=== PATIENT | male | born 1960 | race Caucasian/White ===

== ENCOUNTER 2020-09-01 05:16 | Inpatient (IN) | payer OTHER ==
[2020-08-24 12:13] LABS: BASOPHILS % (AUTO) 0.3 % (0-1); EOSINOPHILS % (AUTO) 0.5 % (0-6); LYMPHOCYTES # (AUTO) 1.3 X10'3 (1.1-4.8); MEAN CORPUSCULAR HEMOGLOBIN 31.1 PG (27.0-31.0); MEAN CORPUSCULAR HGB CONC 33.7 g/dL (33.0-36.5); MEAN CORPUSCULAR VOLUME 92.4 FL (78-98); MONOCYTES # (AUTO) 0.5 X10'3 (0-0.9); MONOCYTES % (AUTO) 7.8 % (2-12); NEUTROPHILS # (AUTO) 4.8 X10'3 (1.8-7.7); NEUTROPHILS % (AUTO) 71.4 % (42-75); PRE OP HEMOGLOBIN 15.8 g/dL (14.0-17.9); PRE OP PLATELET COUNT 194 X10'3 (140-440); RED BLOOD COUNT 5.09 X10'6 (4.70-6.10); RED CELL DISTRIBUTION WIDTH 13.4 % (11.5-14.5)
[2020-08-24 12:28] LABS: PRE OP PROTIME 10.6 SECONDS (9.0-12.0)
[2020-08-24 12:30] LABS: ALBUMIN 4.1 G/DL (3.4-5.0); ALBUMIN/GLOBULIN RATIO 1.1 (1.1-1.5); ALKALINE PHOSPHATASE 78 IU/L (46-116); BLOOD UREA NITROGEN 20 MG/DL (7-18); BUN/CREATININE RATIO 21.1 (5.4-32.0); CALCIUM 9.3 MG/DL (8.5-10.1); CHLORIDE 102 MMOL/L (99-107); CREATININE 0.95 MG/DL (0.60-1.10); PRE OP ALT 48 U/L (30-65); PRE OP ANION GAP 7 (8-16); PRE OP AST 24 U/L (10-37); PRE OP BILIRUB, TOTAL 0.6 MG/DL (0.0-1.0); PRE OP GLUCOSE 97 MG/DL (70-104); PRE OP POTASSIUM 4.2 MMOL/L (3.4-5.1); PRE OP SODIUM 136 MMOL/L (135-145); TOTAL CARBON DIOXIDE 27.2 MMOL/L (24-32); eGFR 81 ML/MIN
[~2020-09-01] VITALS: Ht 188 cm; Wt 108.6 kg
[2020-09-01] VITALS (19 sets, daily range): BP systolic 92–124; BP diastolic 51–81
[~2020-09-01 05:16] MED LIST: ATOM80CA PO; ATOR20TA66 PO; ringers solution, lacted 1,000 ML IV SCH
[2020-09-01] MEDS ORDERED: vancomycin 1,500 MG in NS 300ml IV soln IV ONE (05:30)
[2020-09-01] MEDS ORDERED: famotidine 20mg tablet PO ONE (05:30)
[2020-09-01] MEDS ORDERED: ceFAZolin 2gm in dextrose, iso 50 ML IV ONE (05:30)
[2020-09-01] MEDS ORDERED: tetracaine 1% (10mg/ml) pres. free inj. ONE (07:15)
[2020-09-01] MEDS ORDERED: midazolam 2 mg/2 ml injection ONE (07:18)
[2020-09-01] MEDS ORDERED: fentaNYL/PF 50MCG/1 ML 2ML syringe ONE (07:18)
[2020-09-01] MEDS ORDERED: morphine /PF 1mg/ml 10ml inj. ONE (07:19)
[2020-09-01] MEDS ORDERED: ePHEDrine 50MG/ML INJ. ONE (08:10)
[2020-09-01] MEDS ORDERED: propofol inj 20 ML IV ONE ×7 (08:10→10:29)
[2020-09-01] MEDS ORDERED: morphine 4 MG/ML inj SYRINge IV PRN (08:15)
[2020-09-01] MEDS ORDERED: naloxone 2mg/2ml inj 2 MG in normal saline 500ml IV soln 500 ML IV PRN (08:15)
[2020-09-01] MEDS ORDERED: diphenhydrAMINE 50 mg/ml inj IV PRN (08:15)
[2020-09-01] MEDS ORDERED: ringers solution, lacted 1,000 ML IV SCH (08:15)
[2020-09-01] MEDS ORDERED: ondansetron/PF 4mg/2ml inj IV PRN ×3 (08:15→11:05)
[2020-09-01] MEDS ORDERED: meperidine/PF 25mg/ml syringe IV PRN (08:15)
[2020-09-01] MEDS ORDERED: acetaminophen 1,000mg/100ml IV 100 ML IV PRN (08:15)
[2020-09-01] MEDS ORDERED: HYDROmorphone/PF 0.2 MG/ML SYRINGE IV PRN ×2 (08:15)
[2020-09-01] MEDS ORDERED: proCHLORperazine 10 MG/2 ml inj IV PRN (08:15)
[2020-09-01] MEDS ORDERED: morphine 2 MG/ML inj. syringe IV PRN (08:15)
[2020-09-01] MEDS ORDERED: ROPIVACAINE IU ONE (08:45)
[2020-09-01] MEDS ORDERED: KETOROLAC TROMETH IU ONE (08:45)
[2020-09-01] MEDS ORDERED: [UNRECOGNIZED DRUG - OTHER] IU ONE (08:45)
--- NOTE | 2020-09-01 10:53 | NUR ---
Received from OR via [facility], accompanied by Anesthesiologist Nicolas and report given by Anesthesiolgist. Pt alert and responsive, mask to 10L and sats 100%. All other VS stable and WNL. 18G to left forearm LR at 100cc/hr. Mello catheter draining yellow urine to gravity. Pt lying flat with immobilizing hip pillow between legs. Left anterior hip with gauze and tegaderm dressing and hemovac to left lateral thigh. Good bilateral pedal pulses.
--- NOTE | 2020-09-01 11:00 | NUR ---
SCDs placed on patient. Sensation stops at waist line with spinal block, cannot move toes or feel sensation at hip or below.
[2020-09-01] MEDS ORDERED: bisacodyl 10mg suppository rectal RC PRN (11:05)
[2020-09-01] MEDS ORDERED: magnesium hydroxide 30ml (MOM) UD suspension PO PRN (11:05)
[2020-09-01] MEDS ORDERED: acetaminophen 325mg tablet PO PRN (11:05)
[2020-09-01] MEDS ORDERED: diphenhydrAMINE 25mg capsule PO PRN ×2 (11:05)
--- NOTE | 2020-09-01 12:03 | NUR ---
Report called to receiving nurse. Transferred via ortho bed. Belongings sent with patient, two bags and one red cane. was called and given update prior to transfer. Special Issues communicated to receiving nurse Jesica RN. Pt alert and oriented, BLL call light within reach, RN at bedside and chart given to nurse's station.
[2020-09-01] MEDS: potassium cl 20mEq in 1/2 NS 1,000 ML IV SCH ×2 (13:03→20:12)
[2020-09-01] MEDS: ceFAZolin/D5W- 1GM premix 50 ML IV SCH (17:10)
[2020-09-01] MEDS: gabapentin 300mg capsule PO SCH ×2 (17:11→19:48)
--- NOTE | 2020-09-01 18:26 | NUR ---
Patient in room ORTHO 4020. I have received report from Jesica LAYNE and had the opportunity to ask questions and assume patient care.
[2020-09-01] MEDS: ascorbic acid 500mg tablet PO SCH (19:44)
[2020-09-01] MEDS ORDERED: vancomycin/NS 1 GM ADD-VANTAGE 250 ML IV SCH (20:00)
[2020-09-01] MEDS: sennosides 8.6mg tablet PO SCH (20:11)
[2020-09-02] VITALS (7 sets, daily range): BP systolic 69–122; BP diastolic 37–66
[2020-09-02] MEDS: ceFAZolin/D5W- 1GM premix 50 ML IV SCH (00:14)
[2020-09-02] MEDS: potassium cl 20mEq in 1/2 NS 1,000 ML IV SCH ×3 (05:31→21:39)
[2020-09-02] MEDS: HYDROcodone/acetaminophen 10/325mg tab PO PRN ×3 (05:33→20:07)
--- NOTE | 2020-09-02 06:26 | NUR ---
Problems reprioritized. Patient report given, questions answered & plan of care reviewed with María Elena LAYNE.
[2020-09-02 06:34] LABS: BASOPHILS % (AUTO) 0.3 % (0-1); EOSINOPHILS # (AUTO) 0.1 X10'3 (0-0.9); EOSINOPHILS % (AUTO) 0.9 % (0-6); HEMATOCRIT 30.9 % (42.0-52.0); HEMOGLOBIN 10.7 g/dl (14.0-17.9); LYMPHOCYTES # (AUTO) 1.3 X10'3 (1.1-4.8); LYMPHOCYTES % (AUTO) 18.8 % (21-51); MEAN CORPUSCULAR HEMOGLOBIN 32.3 PG (27.0-31.0); MEAN CORPUSCULAR HGB CONC 34.7 g/dL (33.0-36.5); MEAN CORPUSCULAR VOLUME 93.1 FL (78-98); MEAN PLATELET VOLUME 9.1 FL (7.4-10.4); MONOCYTES # (AUTO) 0.8 X10'3 (0-0.9); NEUTROPHILS # (AUTO) 4.6 X10'3 (1.8-7.7); PLATELET COUNT 146 X10'3 (140-440); RED BLOOD COUNT 3.31 X10'6 (4.70-6.10); RED CELL DISTRIBUTION WIDTH 13.4 % (11.5-14.5); WHITE BLOOD COUNT 6.7 X10'3 (4.5-11.0)
[2020-09-02 06:53] LABS: ANION GAP 6 (8-16); CHLORIDE 107 MMOL/L (99-107); POTASSIUM 4.4 MMOL/L (3.5-5.1); SODIUM 140 MMOL/L (135-145)
[2020-09-02] MEDS: atorvastatin 20mg tablet PO SCH (10:00)
[2020-09-02] MEDS: ascorbic acid 500mg tablet PO SCH ×2 (10:00→20:06)
[2020-09-02] MEDS: multivitamins, therapeutics tablet PO SCH (10:00)
[2020-09-02] MEDS: gabapentin 300mg capsule PO SCH ×3 (10:01→20:07)
[2020-09-02] MEDS: enoxaparin 40mg/0.4ml syringe SQ SCH (10:02)
--- NOTE | 2020-09-02 15:58 | NUR ---
Working with physical therapy, VS were. Orthostatic VS will be taken again at 1000 after patient is bolused. Addendum: 09/02/20 at 1600 by María Elena Salazar RN Amended: Links added.
--- NOTE | 2020-09-02 16:01 | NUR ---
Patient hooked back up to normal IV fluid. Addendum: 09/02/20 at 1601 by María Elena Salazar RN Amended: Links added.
--- NOTE | 2020-09-02 18:30 | NUR ---
Problems reprioritized. Patient report given, questions answered & plan of care reviewed with SCOTT LAYNE.
--- NOTE | 2020-09-02 18:30 | NUR ---
Patient in room ORTHO 4020. I have received report from María Elena LAYNE and had the opportunity to ask questions and assume patient care.
[2020-09-02] MEDS ORDERED: normal saline 1000ml 1,000 ML IVB ONE (19:05)
[2020-09-02] MEDS: sennosides 8.6mg tablet PO SCH (20:07)
[2020-09-02] MEDS: celeCOXIB 100mg capsule PO SCH (20:07)
[2020-09-03] MEDS: HYDROcodone/acetaminophen 10/325mg tab PO PRN (05:35)
[2020-09-03 06:00] VITALS: BP 110/60
[2020-09-03 06:35] LABS: BASOPHILS % (AUTO) 0.1 % (0-1); EOSINOPHILS # (AUTO) 0.1 X10'3 (0-0.9); EOSINOPHILS % (AUTO) 1.5 % (0-6); HEMATOCRIT 28.4 % (42.0-52.0); HEMOGLOBIN 9.7 g/dl (14.0-17.9); LYMPHOCYTES # (AUTO) 1.1 X10'3 (1.1-4.8); LYMPHOCYTES % (AUTO) 14.6 % (21-51); MEAN CORPUSCULAR HEMOGLOBIN 31.7 PG (27.0-31.0); MEAN CORPUSCULAR HGB CONC 34.3 g/dL (33.0-36.5); MEAN CORPUSCULAR VOLUME 92.4 FL (78-98); MEAN PLATELET VOLUME 9.2 FL (7.4-10.4); MONOCYTES # (AUTO) 0.9 X10'3 (0-0.9); MONOCYTES % (AUTO) 11.6 % (2-12); NEUTROPHILS # (AUTO) 5.7 X10'3 (1.8-7.7); NEUTROPHILS % (AUTO) 72.2 % (42-75); PLATELET COUNT 138 X10'3 (140-440); RED BLOOD COUNT 3.07 X10'6 (4.70-6.10); RED CELL DISTRIBUTION WIDTH 13.4 % (11.5-14.5); WHITE BLOOD COUNT 7.8 X10'3 (4.5-11.0)
--- NOTE | 2020-09-03 06:45 | NUR ---
Problems reprioritized. Patient report given, questions answered & plan of care reviewed with Margarette LAYNE.
--- NOTE | 2020-09-03 06:57 | NUR ---
Patient in room ORTHO 4020. I have received report from Jaci LAYNE and had the opportunity to ask questions and assume patient care.
[2020-09-03] MEDS: gabapentin 300mg capsule PO SCH ×2 (09:27→13:00)
[2020-09-03] MEDS: atorvastatin 20mg tablet PO SCH (09:27)
[2020-09-03] MEDS: celeCOXIB 100mg capsule PO SCH (09:28)
[2020-09-03] MEDS: multivitamins, therapeutics tablet PO SCH (09:28)
[2020-09-03] MEDS: ascorbic acid 500mg tablet PO SCH (09:29)
[2020-09-03] MEDS: enoxaparin 40mg/0.4ml syringe SQ SCH (09:30)
[2020-09-03 10:00] VITALS: BP 113/66
--- NOTE | 2020-09-03 12:02 | NUR ---
this a.m. pt refused MOM and Dulcolax Supp for no BM since approx 08/29. Pt d/c'g and states he wants to wait until he gets home to take care of his BM. Will continue to monitor.
--- NOTE | 2020-09-03 14:00 | NUR ---
Pt reported he had meds stored here in the hospital as a nurse in preop said that he cannot have his medication at the bedside. The 2 meds he said were Straterra and Atrovastatin which he had taken a pic of them on his mobile phone and showed them to me which were 2 original bottles of those meds he described and in the background looked like hospital curtains from a patient's room. Checked with our pharmacy which had no record of storage as well as PASS unit and patient belongings with no bottles of meds found. Admission assessment had no record of meds stored as well as contacted preop nurse Erica Tidwell RN who said that did not bring any medications in. Informed pt will notify director to follow up.
--- NOTE | 2020-09-03 14:30 | NUR ---
Pt stable and appropriate for d/c. PIV d/c'd, cannula intact. Reviewed with patient all d/c instructionns and meds, wound care, with patient given opportunity to ask questions, answers provided and pt verbalizing understanding. Pt to call surgeon with any questions, concerns, s/sx of complications/infection or return to nearest ED. [facility] staff member via w/c with all personal belongings except for home meds (see cosmetic counselor Eric licona). Pt d/c'd home in private vehicle driven by family member. Addendum: 09/03/20 at 1855 by Clarissa Clarke RN Pt belongings home with patient: clothing, duffle/zip bag, wallet, cane, glasses, cell phone, explosive ordnance disposal specialist. Pt states no other belongings other than home meds.
== END 2020-09-03 14:30 | disposition home or self-care (01) | DRG 470 ==
LOC: UNDOADMIN 05:16 → PAS IN 05:16 → EDSTATUS 07:30 → PAS IN 08:44 → ORTHO 4S 12:15
PROVIDERS: ADMIT Orthopaedic Surgery; ATTEND Orthopaedic Surgery
PROC: 0SRB0JZ Replacement of Left Hip Joint with Synthetic Substitute, Open Approach (ICD-10-PCS; principal; 2020-09-01 07:16)
DX: M16.12 Unilateral primary osteoarthritis, left hip (principal); D62 Acute posthemorrhagic anemia; Z88.1 Allergy status to other antibiotic agents
CPT/HCPCS: Z7506; Z7508; 36415; 73502; 76000; 80051; 80053; 82948; 85025; 85610; 85730; 86885; 86900; 86901; 87081; 87635; 97110; 97116; 97161; 97530; A6250; A6258; A6446; A6449; A6455; A7000; C1758; C1776; G0378; J0690; J1644; J1650; J1885; J2250; J2270; J2704; J2795; J3010; J3370; J3480; J7030; J7040; J7120